=== PATIENT | male | born 1965 | race Caucasian/White ===

== ENCOUNTER 2019-02-24 07:32 | Day surgery (SDC) | payer OTHER ==
[~2019-02-24] VITALS: Ht 170.2 cm; Wt 95.9 kg
[~2019-02-24 07:32] MED LIST: AMLODIPINE; ASA 81; ATORVASTATIN; CARVEDILOL; CLONIDINE; GLIPIZIDE; LISINOPRIL; METFORMIN
[2019-02-24 08:37] VITALS: Ht 170.2 cm; Wt 95.9 kg
--- NOTE | 2019-02-24 10:24 | PREAC ---
Date/Time of Note Date/Time of Note DATE: 02/24/19 TIME: 10:22 Anesthesia Eval and Record Evaluation Time Pre-Procedure Interview DATE: 02/24/19 TIME: 10:22 Age 53 Sex male NPO: 8 hrs Preoperative diagnosis Abdominal pain, Colon screening Planned procedure EGD, Colonoscopy Past Medical History Past Medical History: Includes Cardio: HTN, Dyslipidemia Endo: Diabetes GI: Obesity Surgery & Anesthesia Issues No known issue Meds Anticoagulation: No Beta Sayra within 24 hr: No Reason Beta Sayra not given: Pt. not on B-Sayra Reported Medications [Atorvastatin] No Conflict Check 02/24/19 [Glipizide] No Conflict Check 02/24/19 [Carvedilol] No Conflict Check 02/24/19 [Metformin] No Conflict Check 02/24/19 [Clonidine] No Conflict Check 02/24/19 [Amlodipine] No Conflict Check 02/24/19 [Lisinopril] No Conflict Check 02/24/19 [Asa 81] No Conflict Check 02/24/19 Meds reviewed: Yes Allergies Coded Allergies: No Known Allergy (Unverified , 02/24/19) Allergies Reviewed: Yes Labs/Studies Labs Reviewed: Reviewed by anesthesiologist test: N/A Studies: ECG Pre-procedure Exam Last vitals BP:112/67, P:74, Spo2:100%, T:98,8 Airway: Adequate mouth opening, Adequate thyromental dist Mallampati: Mallampati II Teeth: Normal Lung: Normal Heart: Normal ASA Physical Status ASA physical status: 3 Emergency: None Planned Anesthetic General/MAC: MAC Planned Pain Management Parenteral pain med Pre-operative Attestations Prior to commencing anesthesia and surgery, the patient was re-evaluated, there was verification of: *The patient's identity *The results of appropriate recent lab work and preoperative vital signs *The above evaluation not changing prior to induction *Anesthetic plan, risk benefits, alternative and complications discussed with patient/family; questions answered; patient/family understands, accepts and wishes to proceed. MONICA CALDERA MD Feb 24, 2019 10:24
[2019-02-24] MEDS ORDERED: LIDOCAINE 2% (SDV) 5 ML INJ ONE (10:36)
[2019-02-24] MEDS ORDERED: PROPOFOL 60 ML ONE (10:36)
[2019-02-24 10:44] VITALS: BP 150/90; PULSE 73; RESP 20
--- NOTE | 2019-02-24 11:17 | PAC ---
Date/Time of Note Date/Time of Note DATE: 02/24/19 TIME: 11:17 Post-Anesthesia Notes Post-Anesthesia Note Activity: WNL Respiratory function: WNL Cardiovascular function: WNL Mental status: Baseline Pain reasonably controlled: Yes Hydration appropriate: Yes Nausea/Vomiting absent: Yes Comments BP:112/67, P:78, Spo2:100%, T:98,6 MONICA CALDERA MD Feb 24, 2019 11:17
[2019-02-24 11:50] VITALS: BP 127/77; RESP 15
== END 2019-02-24 12:38 | disposition home or self-care (01) ==
LOC: GIL 07:32
PROVIDERS: ATTEND Internal Medicine Gastroenterology
DX: Z12.11 Encounter for screening for malignant neoplasm of colon (principal); K29.30 Chronic superficial gastritis without bleeding; D12.5 Benign neoplasm of sigmoid colon; K64.8 Other hemorrhoids; K21.9 Gastro-esophageal reflux disease without esophagitis; I10 Essential (primary) hypertension; E78.5 Hyperlipidemia, unspecified; E11.9 Type 2 diabetes mellitus without complications; Z79.84 Long term (current) use of oral hypoglycemic drugs
CPT/HCPCS: 43239; 45380; 82962; 88305; 88312; Z7610